=== PATIENT | female | born 1965 | race Caucasian/White ===

== ENCOUNTER 2016-08-22 12:02 | Day surgery (SDC) | payer BC ==
[2016-08-21 15:04] VITALS: BMI 23.4
[2016-08-22] VITALS (19 sets, daily range): BP systolic 91–118; BP diastolic 45–57; PULSE 78–88; RESP 16–20; Ht 160 cm; Wt 56.0 kg
[~2016-08-22] VITALS: Ht 160 cm; Wt 56.0 kg
[~2016-08-22 12:02] MED LIST: BENA20TA48; CEFAZOLIN 1 GM INJ ONE; DEXAMETHASONE 4 MG/ML 1 ML INJ ONE; FENTAnyl 50 MCG/ML VIAL ONE; MIDAZOLAM 1 MG/ML 2 ML INJ ONE; ONDANSETRON 4 MG INJ ONE; PROPOFOL 20 ML ONE; [UNRECOGNIZED DRUG - REMARK]
[2016-08-22] MEDS ORDERED: CEFAZOLIN 2 GM/50 ML (PMX) 50 ML IVPB ONE (14:00)
[2016-08-22] MEDS ORDERED: SOD CHLORIDE 0.9% 1,000 ML IV SCH (14:00)
[2016-08-22 14:01] LABS: ADD SCAN DIFF NO
[2016-08-22 14:03] LABS: BASOPHIL # 0.1 10^3/ul (0.0-0.1); BASOPHILS % 0.6 % (0.0-2.0); EOSINOPHILS # 0.1 10^3/ul (0.0-0.5); HEMATOCRIT 35.4 % (37.0-47.0); HEMOGLOBIN 12.1 g/dl (12.0-16.0); LYMPHOCYTES # 1.9 10^3/ul (0.8-2.9); LYMPHOCYTES % 23.9 % (15.0-51.0); MEAN CORPUSCULAR HEMOGLOBIN 30.9 pg (29.0-33.0); MEAN CORPUSCULAR HGB CONC 34.2 g/dl (32.0-37.0); MEAN CORPUSCULAR VOLUME 90.3 fl (82.0-101.0); MEAN PLATELET VOLUME 10.8 fl (7.4-10.4); MONOCYTE # 0.6 10^3/ul (0.3-0.9); MONOCYTES % 7.8 % (0.0-11.0); NEUTROPHIL # 5.1 10^3/ul (1.6-7.5); NEUTROPHILS % 66.3 % (39.0-77.0); PLATELET COUNT 229 10^3/UL (140-415); RED BLOOD COUNT 3.92 10^6/ul (4.20-5.40); RED CELL DISTRIBUTION WIDTH 13.7 % (11.5-14.5); WHITE BLOOD COUNT 7.7 10^3/ul (4.8-10.8)
[2016-08-22 14:18] LABS: CREATININE 0.65 mg/dl (0.44-1.00)
[2016-08-22 14:26] LABS: INR 0.99; PROTIME 13.1 Sec (12.2-14.2)
[2016-08-22 14:27] LABS: PARTIAL THROMBOPLASTIN TIME 29.1 Sec (25.0-35.0)
--- NOTE | 2016-08-22 14:35 | RADRPT ---
PROCEDURE: XR Chest. CLINICAL INDICATION: Pre-operative evaluation. TECHNIQUE: Single frontal chest x-ray. COMPARISON: None available FINDINGS: The lungs are clear. No focal opacification is seen. No pneumothorax or pleural effusion is seen. Aortic arch atherosclerotic calcifications are present. Otherwise, the cardiomediastinal silhouett e is unremarkable. The osseous structures are grossly unremarkable. IMPRESSION: 1. No evidence of acute cardiopulmonary disease. 2. Aortic atherosclerosis. RPTAT: TT .Matthew Reyna MD, MD Date Time Electronically viewed and signed by .Matthew Reyna MD, on 08/22/2016 14:35 .A/
[2016-08-22] MEDS ORDERED: DULO20CA17 PO (14:53)
[2016-08-22] MEDS ORDERED: TRAM50TA2 PO (14:53)
[2016-08-22] MEDS ORDERED: BENA20TA48 PO (14:53)
[2016-08-22] MEDS ORDERED: TOFA5TAB PO (14:53)
--- NOTE | 2016-08-22 15:12 | RADRPT ---
Vent Rate: 86 bpm RR Interval: 0 msec [place] Interval: 144 msec QRS Duration: 86 msec QT Interval: 386 msec QTC Interval: 461 msec P-R-T [place]: 64 - 64 - 51 degrees Normal sinus rhythm Nonspecific ST abnormality Abnormal ECG Electronically Signed By: Charlie Nicholas [id number]
[2016-08-22] MEDS ORDERED: BUPIVACAINE 0.25% (MPF) 30 ML INJ ONE (15:21)
[2016-08-22] MEDS ORDERED: CEFAZOLIN 1 GM INJ ONE (15:27)
[2016-08-22] MEDS ORDERED: MIDAZOLAM 1 MG/ML 2 ML INJ ONE (15:27)
[2016-08-22] MEDS ORDERED: PROPOFOL 20 ML ONE (15:27)
[2016-08-22] MEDS ORDERED: LIDOCAINE 2% (SDV) 5 ML INJ ONE (15:27)
[2016-08-22] MEDS ORDERED: FENTAnyl 50 MCG/ML VIAL IV PRN (15:30)
[2016-08-22] MEDS ORDERED: OXYCODONE/ACETAMINOPHEN (5/325) TAB PO PRN ×2 (15:30)
[2016-08-22] MEDS ORDERED: HYDROmorphONE (0.2 MG/ML) 10ML SYG IV PRN (15:30)
[2016-08-22] MEDS ORDERED: MEPERIDINE 25 MG INJ IV PRN (15:30)
[2016-08-22] MEDS ORDERED: DIPHENHYDRAMINE 50 MG INJ IV PRN (15:30)
[2016-08-22] MEDS ORDERED: ONDANSETRON 4 MG INJ IV PRN (15:30)
[2016-08-22] MEDS ORDERED: PROCHLORPERAZINE 10 MG INJ IV PRN (15:30)
[2016-08-22] MEDS ORDERED: KETOROLAC 30 MG INJ IV ONE (15:30)
[2016-08-22] MEDS ORDERED: METOCLOPRAMIDE 10 MG INJ ONE (15:43)
[2016-08-22] MEDS ORDERED: ONDANSETRON 4 MG INJ ONE (15:43)
[2016-08-22] MEDS ORDERED: PHENYLephrine (100 MCG/ML) 5ML SYG ONE (15:44)
[2016-08-22] MEDS ORDERED: HYDROCODONE/APAP (5/325) TAB PO ONE (16:00)
--- NOTE | 2016-08-22 16:14 | OPR ---
DATE OF OPERATION: 08/22/2016 INDICATION: This is a 51-year-old female with a back mass. She requests surgical excision. Risks, alternatives, benefits, and personnel were discussed with the patient. The patient expresses under standing and consents to the operation. PREOPERATIVE DIAGNOSIS: Back tumor. POSTOPERATIVE DIAGNOSIS: Back tumor. COMPLICATIONS: 1. Excision of back tumor with 8 cm size mass and 5 cm size tumor. 2. Localized adjacent tissue transfer with the use of skin flaps. SURGEON: Armida Wong MD SPECIMEN: Back tumor. COMPLICATIONS: None. ANESTHESIA: General. DESCRIPTION OF PROCEDURE: The patient was taken to the OR, prepped and draped in the usual sterile fashion. Surgical timeout was performed. IV antibiotics were given. Incision is made with a 15 bl frances. Dissection cautery was carried down to the mass and circumferentially excised. There was good hemostasis. Due to tissue defect, localized adjacent tissue transfer with the use of skin flaps wa s performed. Multilayer closure with interrupted 3-0 Vicryl and skin montrell. Local anesthesia was injected. Dry dressings were applied. Dictated By: ARMIDA FARMER/KAYCEE Conf#: [id number] DID#: [id number]
[2016-08-22] MEDS ORDERED: EPHEDrine SULFATE 50 MG/5 ML SYG IV PRN (16:30)
[2016-08-22] MEDS ORDERED: hydrALAzine 20 MG INJ IV PRN (16:30)
[2016-08-22] MEDS ORDERED: LABETALOL HCL 20MG INJ IV PRN (16:30)
== END 2016-08-22 18:28 | disposition home or self-care (01) ==
LOC: SDS 12:02
PROVIDERS: ATTEND Surgery
DX: D17.1 Benign lipomatous neoplasm of skin and subcutaneous tissue of trunk (principal); I10 Essential (primary) hypertension
CPT/HCPCS: 14000; 71010; 80048; 85025; 85610; 85730; 88307; 93005; J0690; J2250; J2370; J2405; J2765; J3010; Z7512; Z7610; J1100